=== PATIENT | male | born 1965 | race Caucasian/White ===

== ENCOUNTER 2016-08-04 07:48 | Outpatient (CLI) | payer BC ==
--- NOTE | 2016-08-04 11:10 | DIAGNOSTIC IMAGING REPORT ---
PROCEDURE: US ABDOMEN VASCULAR-AAA INDICATION: ABD BRUIT TECHNIQUE: Cobb scale and color Doppler sonographic images of the abdomen were obtained. COMPARISON: None. FINDINGS: AORTIC VELOCITY: 116 cm/sec PROXIMAL ABDOMINAL AORTA: 2.2 x 2.1 cm MIDABDOMINAL AORTA: 2.1 x 1.7 cm DISTAL ABDOMINAL AORTA: 2 x 2 cm RIGHT COMMON ILIAC ARTERY: 9 mm x 1 cm LEFT COMMON ILIAC ARTERY: 1.3 x 1.2 cm IMPRESSION: 1. Normal aorta, no aneurysm
== END 2016-08-04 23:00 ==
LOC: US SRH 07:48
DX: R09.89 Other specified symptoms and signs involving the circulatory and respiratory systems (principal)

== ENCOUNTER 2016-08-05 08:50 | Outpatient (CLI) | payer OTHER ==
--- NOTE | 2016-08-05 20:59 | DIAGNOSTIC IMAGING REPORT ---
PROCEDURE: US RENAL VASCULAR - BILATERAL INDICATION: ABD BRUIT TECHNIQUE: Cobb scale and color Doppler sonographic images of the kidneys were performed. Spectral waveform analysis was obtained of the renal arteries, intrarenal vessels, and aorta, including renal resistive indices and calculation of renal to aortic ratios. COMPARISON: None. FINDINGS: AORTIC VELOCITY: 94 cm/sec RIGHT KIDNEY: Right kidney is of normal size 10.7 x 5.4 x 4.1 cm) with normal morphology. RIGHT RENAL ARTERY VELOCITIES: Right renal artery velocities are normal (proximal 109 cm/s; mid 183 cm/s; distal 132 cm/s). RIGHT RENAL AORTIC RATIO: Right renal to aortic ratios are normal (proximal 1.15 mid 1.9 distal 1.4 RIGHT RENAL RESISTIVE INDICES: Right renal resistive indices are normal (upper pole 0.59 midpole 0.58 inferior pole 0.61 LEFT KIDNEY: Left kidney is of normal size 10.2 x 5.8 x 5.0 cm) with normal morphology. LEFT RENAL ARTERY VELOCITIES: Left renal artery velocities are normal (proximal 114 cm/s; mid 111 cm/s; distal 65 cm/s). LEFT RENAL AORTIC RATIO: Left renal to aortic ratios are normal (proximal 1.2 mid 1.1 distal 0.69 LEFT RENAL RESISTIVE INDICES: Left renal resistive indices are normal (upper pole 0.53 midpole 0.55 inferior pole 0.55. Prominent SMA with peak systolic velocities 280 cm/sec proximally, 191 cm/sec mid and 178 cm/sec cm distally. SMA end diastolic velocity 55 cm/sec proximally , 51 cm/sec mid and 178 cm/sec distally. Celiac trunk is small and irregular vessel and appears to arise from the SMA. The peak systolic velocity is 104 cm/sec, end diastolic velocity 12.5 cm. NBA is patent with a peak systolic velocity of 192 cm/sec. IMPRESSION: 1. No evidence of renal artery stenosis 2. Enlarged SMA without evidence of stenosis. Celiac trunk vessel is a small vessel arising from the SMA.
== END 2016-08-05 23:00 | disposition home or self-care (01) ==
LOC: US SRH 08:50
DX: R09.89 Other specified symptoms and signs involving the circulatory and respiratory systems (principal); I77.89 Other specified disorders of arteries and arterioles